=== PATIENT | male | born 1950 | race Caucasian/White ===

== ENCOUNTER 2019-08-27 22:15 | Inpatient (IN) | payer MEDICARE, OTHER ==
[~2019-08-27] VITALS: Ht 162.6 cm; Wt 59.0 kg
--- NOTE | 2019-08-27 23:05 | NUR ---
BIB SISTER FOR PSYCH ADMISSION. REFERED BY DR. LOPEZ FOR GPS ADMIT. PLACED ON MONITOR AND PULSE OX. VSS.
--- NOTE | 2019-08-27 23:15 | NUR ---
CALLED EFREN BEAUCHAMP FOR EVALAUTION. NO ANSWER, LEFT MESSAGE. WILL FOLLOW UP
[2019-08-27] MEDS ORDERED: RISP1TAB7 PO (23:32)
[2019-08-27] MEDS ORDERED: TRAZ-182 PO (23:32)
--- NOTE | 2019-08-27 23:35 | NUR ---
Waldo garrett in [facility] - 08/28/19 at 0024 by BRENT SUKH BEAUCHAMP LCSW FOR EVALUATION
--- NOTE | 2019-08-27 23:37 | NUR ---
CALLED EFREN BEAUCHAMP FOR EVALUATION
--- NOTE | 2019-08-27 23:37 | NUR ---
COVID SWAB SENT TO LAB
--- NOTE | 2019-08-27 23:50 | NUR ---
CALLED QUYNH SCHWARTZ FOR EVALUATION
--- NOTE | 2019-08-28 00:25 | NUR ---
CALLED EFREN BEAUCHAMP FOR EVALUATION
--- NOTE | 2019-08-28 00:31 | NUR ---
CALLED CADEN PIRES LCSW FOR EVALUATION
--- NOTE | 2019-08-28 02:36 | NUR ---
CALLED EFREN BEAUCHAMP FOR EVALUATION
--- NOTE | 2019-08-28 03:12 | NUR ---
PT RESTING. GIVEN FOOD.
--- NOTE | 2019-08-28 03:14 | NUR ---
CALLED CADEN PIRES LCSW FOR EVALUATION. NO ANSWER
--- NOTE | 2019-08-28 04:55 | NUR ---
QUYNH AT BEDSIDE
--- NOTE | 2019-08-28 05:12 | NUR ---
REPORT GIVEN FOR TEJAS
[2019-08-28] MEDS ORDERED: TEMAZEPAM 7.5 MG CAPSULE PO PRN (06:00)
[2019-08-28] MEDS ORDERED: ACETAMINOPHEN 325 MG TABLET PO PRN (06:00)
[2019-08-28] MEDS ORDERED: MAGNESIUM HYDROXIDE 30 ML UDC PO PRN (06:00)
[2019-08-28] MEDS ORDERED: MAG HYDROX/AL HYDROX/SIMETH 30 ML UDC PO PRN (06:00)
[2019-08-28] MEDS ORDERED: BLOOD SUGAR DIAGNOSTIC 1 EACH STRIP IN ONE (06:30)
[2019-08-28 06:31] VITALS: BP 116/84
--- NOTE | 2019-08-28 06:40 | NUR ---
GPS ELECTRIC MOTOR CONTROL ASSEMBLER NOTES: ADMITTED A 68 YO MALE FROM [facility]. PATIENT CAME FROM HOME PRIOR TO [place] ADMISSION. PATIENT IS ON 5150 HOLD FOR GRAVE DISABILITY. PER HOLD PATIENT PRESENTS AT THE ED CONFUSED, RAMBLING, NOT MAKING ANY SENSE, HAD SOME DELUSIONAL EPISODES AND SHOWED UNPREDICTABLE BEHAVIOR. DR. LOPEZ AND JOY ALVARES WILL BE ON THE PATIENT'S CARE WHILE ADMITTED INPATIENT HERE AT [facility]. PATIENT WAS BROUGHT IN HERE BY EMT STAFF AT 0530AM VIA WHEELCHAIR. UPON FACE TO FACE EVALUATION, PATIENT PRESENTS ALERT AND ORIENTED X2-3, ABLE TO MAKE HIS NEEDS KNOW,NOTED THAT PATIENT WAS NEAT AND WELL DRESSED. DURING INTERVIEW PATIENT TENDS TO STUTTER HE ANSWERS QUESTIONS AND REPEATEDLY TELLS THE NURSE THE SAME STUFF. "DR. LOPEZ WILL COME AND SEE ME TODAY" - THIS PHRASE REPEATEDLY STATED OVER AND OVER AND AGAIN DURING THE COURSE OF THE INTERVIEW. SKIN AND BODY ASSESSMENT DONE WITH ANOTHER RN, AKANKSHA AGUILERA. NO SKIN ISSUES NOTED THIS TIME. PHOTO PICTURE DONE AND PLACED IN CHART. PATIENT THEN CHANGED TO CLEAN PATIENT'S GOWN AND CLEAN SOCKS. PATIENT ABLE TO SIGN ADMISSION PAPERS WITH OUT ANY PROBLEMS. PATIENT DOES ADMIT TO HEARING VOICES FROM TIME TO TIME HOWEVER HE IS NOT ABLE TO ELABORATE WHAT THESE VOICES ARE SAYING. PATIENT APPEARS TO BE OBSERVING THE SURROUNDING AROUND HIM. REALITY ORIENTATION DONE. ORIENTATION TO UNIT, STAFF,CARE PLAN, DOCTORS AND TEAM DONE. PATIENT ADVISE OF HIS HOLD. CARE PLAN THEN FORMULATED SPECIFIC TO THE PATIENT'S NEEDS. PROVIDED PATIENT WITH PATIENT'S RIGHTS HANDBOOK AND GUIDE TO PRESCRIPTION MEDICATIONS PROVIDED WELL. Q15 MIN CHECKS INITIATED. SAFETY AND FALL PRECAUTIONS OBSERVED. PATIENT WILL BE ENDORSED TO NEXT SHIFT NURSE FOR CONTINUITY OF CARE.
[2019-08-28 08:00] VITALS: BP 117/78
[2019-08-28] MEDS ORDERED: TRAZODONE 50 MG TABLET PO PRN (13:00)
[2019-08-28 16:00] VITALS: BP 113/72
[2019-08-28] MEDS: risperiDONE 1 MG TABLET PO SCH (17:28)
[2019-08-29 05:35] VITALS: BP 110/65
[2019-08-29] MEDS: risperiDONE 1 MG TABLET PO SCH ×2 (07:38→17:34)
[2019-08-29 08:00] VITALS: BP 108/74
[2019-08-29 08:00] LABS: BASOPHILS % (AUTO) 0.4 % (0.0-2.0); EOSINOPHILS % (AUTO) 1.4 % (0.0-6.0); HEMATOCRIT 41 % (39-51); HEMOGLOBIN 13.5 g/dL (13.5-17.5); LYMPHOCYTES # (AUTO) 1.4 /CMM (0.8-4.8); LYMPHOCYTES % (AUTO) 19.9 % (20.0-44.0); MEAN CORPUSCULAR HGB CONC 33 g/dl (31.0-36.0); MEAN CORPUSCULAR VOLUME 96 fL (80-96); MONOCYTES # (AUTO) 0.5 /CMM (0.1-1.30); MONOCYTES % (AUTO) 7.6 % (2.0-12.0); NEUTROPHILS % (AUTO) 70.7 % (43.0-81.0); PLATELET COUNT (AUTO) 154 /CMM (150-450); RED BLOOD CELL COUNT(AUTO) 4.29 MIL/uL (4.5-6.0); WHITE BLOOD COUNT (AUTO) 7.1 K/uL (4.3-11.0)
[2019-08-29 08:01] LABS: CALCIUM, SERUM 8.9 mg/dL (8.5-10.1); CREATININE 1.1 mg/dL (0.6-1.3); POTASSIUM 3.6 mmol/L (3.5-5.1)
[2019-08-29 16:00] VITALS: BP 123/87
[2019-08-29 20:10] VITALS: BP 110/71
[2019-08-29 20:14] VITALS: BP 110/71
[2019-08-30 08:00] VITALS: BP 128/85
[2019-08-30] MEDS: risperiDONE 1 MG TABLET PO SCH ×2 (08:00→16:39)
--- NOTE | 2019-08-30 10:13 | NUR ---
Social Work Initial Discharge Plan: Patient currently resides at [address] [place] [address]; ([phone]) with sister Debbie ([phone]). Per pt's sister Debbie ([phone]) would want patient back home upon discharge. plastic worker will work with the pt and the MD regarding appropriate discharge planning. plastic worker will form a safe and proper discharge plan.
--- NOTE | 2019-08-30 10:38 | NUR ---
Social Work Family Contact: sheet metal production worker spoke with patient's sister Debbie ([phone]) and discussed patient's treatment plan and discharge plan.
--- NOTE | 2019-08-30 14:48 | NUR ---
INDIVIDUAL INTERVENTION: SW met with pt at bedside. Pt appeared confused, disorganized, and disoriented. Pt had mumbled speech and stated he was at an [facility] waiting to get surgery. Pt was unable to engage in an appropriate conversation.
[2019-08-30 16:00] VITALS: BP 114/80
[2019-08-30 19:56] VITALS: BP 144/84
[2019-08-30 20:00] VITALS: BP 144/84
[2019-08-30 20:41] VITALS: BP 138/79
--- NOTE | 2019-08-31 06:38 | NUR ---
GPS RN NOTE PATIENT SLEPT WELL AT NIGHT, NO CHANGE OF CONDITION NOTED. WILL ENDORSE TO AM RN FOR CONTINUITY OF CARE.
[2019-08-31 08:06] VITALS: BP 141/91
[2019-08-31] MEDS: risperiDONE 1 MG TABLET PO SCH ×2 (08:07→17:05)
--- NOTE | 2019-08-31 14:41 | NUR ---
GROUP NOTE: Pt was present during group therapy, pt discussed his addiction and stated how that has put a strain in his relationship between him and his family. Pt stated that he is going to try and stick to treatment this time around. Pt agrees to be discharged to [facility] tomorrow. Addendum: 09/01/19 at 1108 by SUKI BERRY WRONG NOTE: Addendum: 09/01/19 at 1111 by SUKI BERRY GROUP NOTE: Pt was present during group therapy, pt was coloring and did not engage in conversation.
[2019-08-31 15:58] VITALS: BP 140/91
[2019-08-31 20:11] VITALS: BP 132/94
[2019-09-01 08:00] VITALS: BP 135/80
[2019-09-01] MEDS: risperiDONE 1 MG TABLET PO SCH ×2 (08:22→16:26)
--- NOTE | 2019-09-01 14:05 | NUR ---
GROUP NOTE: Pt was present during group therapy but did not engage in conversation. Pt appears to be developmentally delayed and has mumbled/stuttered speech. Pt was coloring and did not engage. Pts mood is calm with congruent affect.
[2019-09-01 16:00] VITALS: BP 145/96
[2019-09-01 20:08] VITALS: BP 151/85
--- NOTE | 2019-09-02 00:51 | NUR ---
GPS RN NOTE: INSOMNIA PT COMPLAINED OF NOT BEING ABLE TO SLEEP AND REQUESTING SOMETHING FOR SLEEP. ADMINISTERED TRAZODONE PRN @0046, WILL REASSESS AND MONITOR Q15 MIN FOR SAFETY AND BEHAVIOR.
[2019-09-02 08:00] VITALS: BP 123/83
[2019-09-02] MEDS: risperiDONE 1 MG TABLET PO SCH ×3 (08:27→20:35)
[2019-09-02] MEDS ORDERED: TEMAZEPAM 7.5 MG CAPSULE PO PRN (12:30)
[2019-09-02] MEDS: BENZTROPINE MESYLATE (1 MG) 1 MG TABLET PO SCH ×2 (13:00→16:21)
--- NOTE | 2019-09-02 14:22 | NUR ---
GROUP NOTE: Group Topic was on how to manage stress. Patient was able to engage in group. Patient was present but was not interacting or sharing.
[2019-09-02 16:00] VITALS: BP 124/82
[2019-09-02 20:50] VITALS: BP 137/68
--- NOTE | 2019-09-03 00:31 | NUR ---
GPS RN NOTE: INSOMNIA PT WAS FOUNDED GETTING UP AND OUT OF BED FREQUENTLY. TRIED THERAPEUTIC TECHNIQUES TO HELP PROMOTE SLEEP. PT STATED "I WANT A SLEEPING PILL". WENT AHEAD AND ADMINISTERED RESTORIL 7.5MG TAB PRN @0031. WILL REASSESS AND MONITOR Q15MIN FOR SAFETY AND BEHAVIOR.
[2019-09-03] MEDS: LORAZEPAM 0.5 MG TABLET PO PRN (01:22)
--- NOTE | 2019-09-03 01:25 | NUR ---
GPS RN NOTE: ANXIETY PT WAS FOUND RESTLESS, ANXIOUS AND WALKING AROUND. PT REQUESTED SOMETHING TO HELP WITH ANXIETY. ADMINISTERED ATIVAN 0.5MG PRN @0122. WILL REASSESS AND CONTINUE TO MONITOR Q15 MIN FOR SAFETY AND BEHAVIOR.
[2019-09-03 08:00] VITALS: BP 134/75
[2019-09-03] MEDS: risperiDONE 1 MG TABLET PO SCH ×3 (08:07→20:53)
[2019-09-03] MEDS: BENZTROPINE MESYLATE (1 MG) 1 MG TABLET PO SCH ×2 (08:07→16:36)
--- NOTE | 2019-09-03 14:52 | NUR ---
GROUP NOTE: SW invited pt to join group. Pt refused to join and stated that he wanted to color.
[2019-09-03 16:00] VITALS: BP 131/85
[2019-09-03 19:53] VITALS: BP 118/55
[2019-09-03 20:00] VITALS: BP 118/55
[2019-09-03] MEDS: TEMAZEPAM 7.5 MG CAPSULE PO PRN (21:46)
[2019-09-04 08:00] VITALS: BP 112/66
[2019-09-04] MEDS: risperiDONE 1 MG TABLET PO SCH ×3 (08:31→20:08)
[2019-09-04] MEDS: BENZTROPINE MESYLATE (1 MG) 1 MG TABLET PO SCH ×2 (08:31→16:08)
[2019-09-04 16:00] VITALS: BP 122/74
[2019-09-04 20:24] VITALS: BP 125/80
[2019-09-04] MEDS: TEMAZEPAM 7.5 MG CAPSULE PO PRN (22:28)
[2019-09-05 08:00] VITALS: BP 124/87
[2019-09-05] MEDS: risperiDONE 1 MG TABLET PO SCH ×3 (09:01→20:36)
[2019-09-05] MEDS: BENZTROPINE MESYLATE (1 MG) 1 MG TABLET PO SCH ×2 (09:01→17:23)
[2019-09-05 16:00] VITALS: BP 131/87
[2019-09-05] MEDS: LORAZEPAM 0.5 MG TABLET PO PRN (17:23)
--- NOTE | 2019-09-05 17:23 | NUR ---
rn notes administered Ativan 0.5 mg po prn for anxiety per patient request, bp 131/87, p-95.
[2019-09-05 20:07] VITALS: BP 125/86
[2019-09-06 08:00] VITALS: BP 133/83
[2019-09-06] MEDS: BENZTROPINE MESYLATE (1 MG) 1 MG TABLET PO SCH ×2 (08:30→16:09)
[2019-09-06] MEDS: risperiDONE 1 MG TABLET PO SCH ×3 (08:30→20:22)
--- NOTE | 2019-09-06 12:00 | NUR ---
Social Work Family Contact: childcare worker spoke with patient's sister Debbie ([phone]) and discussed patients discharge plan. Per Debbie, she would want this comic book writer to coordinate to find a SNF for pt. This comic book writer will work with the MD regarding placement.
--- NOTE | 2019-09-06 12:01 | NUR ---
Social Work Coordination of Care: This selling underwriter faxed Laura from [place] ([phone]) and sent patient's H & P psychiatric notes and progress notes to review.
--- NOTE | 2019-09-06 13:45 | NUR ---
Social Work Coordination of Care: This jingle writer faxed Laura from [facility] ([phone]) who stated that they are unable to accept patient due to pt not having skilled needs.
--- NOTE | 2019-09-06 13:50 | NUR ---
Social Work Coordination of Care: This com writer faxed Monique from [facility] ([phone]) who stated that they will review patient's H & P psychiatric notes and progress notes. Addendum: 09/06/19 at 1412 by KRISTI VAZQUEZ They are not admitting patients at the moment due to COVID re-testing at the facility.
--- NOTE | 2019-09-06 15:40 | NUR ---
Social Work Coordination of Care: This business writer sent referrals to [facility] ([phone]) and will review patient's clinicals. Addendum: 09/06/19 at 1559 by KRISTI VAZQUEZ Patient is accepted
[2019-09-06 16:00] VITALS: BP 126/84
[2019-09-06 20:10] VITALS: BP 139/85
[2019-09-06] MEDS: LORAZEPAM 0.5 MG TABLET PO PRN (21:24)
--- NOTE | 2019-09-06 21:25 | NUR ---
GPS-RN NOTE: ANXIETY PATIENT NOTED TO BE ANXIOUS AND RESTLESS. ADMINISTERED ATIVAN 0.5MG PO ORDERED. WILL CONTINUE TO MONITOR FOR SAFETY AND BEHAVIOR.
--- NOTE | 2019-09-07 07:30 | NUR ---
RECEIVED PT. THIS AM ALERT AND ORIENTED X 3.NO COMPLAINTS OFFERED.TALKS TO SELF OFTEN
[2019-09-07 08:00] VITALS: BP 122/73
[2019-09-07] MEDS: BENZTROPINE MESYLATE (1 MG) 1 MG TABLET PO SCH ×2 (08:58→17:27)
[2019-09-07] MEDS: risperiDONE 1 MG TABLET PO SCH ×3 (08:58→20:02)
--- NOTE | 2019-09-07 15:02 | NUR ---
GROUP NOTE: Group Topic: Depression SW invited patient to group, however patient refused to attend group he stated "I am busy thinking about stuff right now"
[2019-09-07 16:00] VITALS: BP 137/86
[2019-09-07 19:55] VITALS: BP 117/74
[2019-09-07] MEDS ORDERED: MEMANTINE HCL 5 MG TABLET PO SCH (22:00)
[2019-09-08 08:00] VITALS: BP 116/74
[2019-09-08] MEDS: BENZTROPINE MESYLATE (1 MG) 1 MG TABLET PO SCH ×2 (09:10→16:50)
[2019-09-08] MEDS: risperiDONE 1 MG TABLET PO SCH ×3 (09:12→20:17)
--- NOTE | 2019-09-08 13:31 | NUR ---
given tylenol 650 mg po for back pain. Addendum: 09/08/19 at 1546 by DEMIAN SUBRAMANIAN RN ABOVE INFO ON WRONG PT.
--- NOTE | 2019-09-08 14:15 | NUR ---
RN WALKING IN TO RM.PT. ATTEMPTING TO GET OOB,WITH DIFFICLTY.PT. WITH USE OF WALKER AND WALKING UNSTEADILY AND CROOKED.SEEMS WEAK.PLACED IN JULI CHAIR. Addendum: 09/08/19 at 1547 by DEMIAN SUBRAMANIAN RN ABOVE INFO ON WRONG PT.
--- NOTE | 2019-09-08 15:07 | NUR ---
Group Note: SW encouraged the pt to attend group therapy on 09/08/19 on the topic of discharge planning. Pt stated that he is in the activities room and therefore he would participate. KRISTI attempted to have more individuals participate but was unable to get more patients. KRISTI came back and did an individual session with the pt but the pt appeared to be confused, was mumbling and his speech was incoherent and nonsensical. Pt is not appropriate for group at this time.
--- NOTE | 2019-09-08 15:48 | NUR ---
IN DINING RM.,COLORING.QUIET AND COOPERATIVE. M
[2019-09-08 16:00] VITALS: BP 144/85
[2019-09-08 19:34] VITALS: BP 138/74
[2019-09-09 08:00] VITALS: BP 144/88
[2019-09-09] MEDS: risperiDONE 1 MG TABLET PO SCH ×3 (08:49→20:04)
[2019-09-09] MEDS: BENZTROPINE MESYLATE (1 MG) 1 MG TABLET PO SCH ×2 (08:49→16:44)
[2019-09-09] MEDS: MEMANTINE HCL 5 MG TABLET PO SCH ×2 (08:52→16:44)
--- NOTE | 2019-09-09 14:12 | NUR ---
GROUP NOTE: Topic: Adapting to our environment. corrections caseworker encouraged patient to participate in group therapy, however patient was sleeping and did not want to be bothered at this time. SW encouraged patient to step out of his room and engage with others.
[2019-09-09 16:00] VITALS: BP 124/90
[2019-09-09 20:13] VITALS: BP 142/88
[2019-09-10 08:00] VITALS: BP 113/70
[2019-09-10] MEDS: risperiDONE 1 MG TABLET PO SCH ×3 (08:06→19:26)
[2019-09-10] MEDS: BENZTROPINE MESYLATE (1 MG) 1 MG TABLET PO SCH ×2 (08:06→16:25)
[2019-09-10] MEDS: MEMANTINE HCL 5 MG TABLET PO SCH ×2 (08:06→16:27)
--- NOTE | 2019-09-10 15:05 | NUR ---
GROUP NOTE: Topic: Learning coping skills. SW attempted to encourage patient to participate in group. Patient was resting at this time and wanted to remain sleeping.
[2019-09-10 16:00] VITALS: BP 145/91
[2019-09-10 21:10] VITALS: BP 125/78
--- NOTE | 2019-09-11 07:15 | NUR ---
GPS RN NOTE NO BEHAVIOR PROBLEMS NOTED. NO ACUTE DISTRESS NOTED. WILL CONTINUE TO MONITOR FOR SAFETY AND BEHAVIOR .
[2019-09-11 08:00] VITALS: BP 129/76
[2019-09-11] MEDS: MEMANTINE HCL 5 MG TABLET PO SCH ×2 (08:36→16:32)
[2019-09-11] MEDS: BENZTROPINE MESYLATE (1 MG) 1 MG TABLET PO SCH ×2 (08:36→16:32)
[2019-09-11] MEDS: risperiDONE 1 MG TABLET PO SCH ×3 (08:36→20:09)
[2019-09-11 16:00] VITALS: BP 126/87
[2019-09-11 20:55] VITALS: BP 139/80
[2019-09-12 08:00] VITALS: BP 117/69
[2019-09-12] MEDS: MEMANTINE HCL 5 MG TABLET PO SCH ×2 (08:07→17:34)
[2019-09-12] MEDS: BENZTROPINE MESYLATE (1 MG) 1 MG TABLET PO SCH ×2 (08:07→17:34)
[2019-09-12] MEDS: risperiDONE 1 MG TABLET PO SCH ×3 (08:07→20:17)
[2019-09-12 15:50] VITALS: BP 125/77
[2019-09-12 19:53] VITALS: BP 112/82
[2019-09-13 08:00] VITALS: BP 135/92
[2019-09-13] MEDS: risperiDONE 1 MG TABLET PO SCH ×2 (08:29→12:08)
[2019-09-13] MEDS: MEMANTINE HCL 5 MG TABLET PO SCH (08:29)
[2019-09-13] MEDS: BENZTROPINE MESYLATE (1 MG) 1 MG TABLET PO SCH (08:29)
--- NOTE | 2019-09-13 09:00 | NUR ---
RN NOTE- PT QUIET WITHDRAWN ISOLATIVE SLOW TO RESPOND VERBALLY DENIES ALL PO INTAKE GOOD MED COMPLIANT
--- NOTE | 2019-09-13 09:07 | NUR ---
KRISTI Discharge Note: Patient will be discharged to senior living facility, [address] [address] ([phone]) via ambulance transportation at 1pm. KRISTI spoke with Nick branch operations coordinator at the facility who states they are ready to accept the patient today. This software writer spoke with patients sister, Debbie ([phone]) who is aware and agreeable with discharge plan. Patient is alert and oriented x3-4, and is unable to plan for self-care, however, patient is willing to accept care provided at the facility. Patient denies suicidal or homicidal ideation. Patient is aware and agreeable with discharge plans. Patient will continue to follow-up with his Psychiatrist Dr. Kenney and Heel Washer Stringing Machine Operator Dr. Neville at [address] [address] ([phone]. Patient's sister, Debbie ([phone]) is made aware and agreeable with discharge plan.
[2019-09-13] MEDS: LORAZEPAM 0.5 MG TABLET PO PRN (14:09)
--- NOTE | 2019-09-13 14:09 | NUR ---
RN NOTE- IN ANXIOUS ABOUT DC . ATIVAN 0.5 MG GIVEN
--- NOTE | 2019-09-13 14:35 | NUR ---
RN NOTE- PT DC TO [facility] IN [place] AT THIS TIME . PT A BIT ANXIOUS ABOUT DC. VS STABLE PT ALERT ORIENTED TO SELF ONLY. CONFUSED. DENYING SI HI AH VH. DC INSTRUCTIONS AND AFTERCARE REPORT CALLED TO FACILITY AT NOON TODAY. DC INSTRUCTIONS REVIEWED W AMBULANCE STAFF AND UNDERSTOOD. VALUABLES RETURNED TO PT. ID [id number] REMOVED AND PT ESCORTED OFF UNIT BY STAFF
== END 2019-09-13 14:35 | DRG 885 ==
LOC: ER 22:25 → GPS 08-28 05:18
PROVIDERS: ADMIT Psychiatry & Neurology Psychiatry; ATTEND Nurse Practitioner Acute Care
DX: F25.0 Schizoaffective disorder, bipolar type (principal); F79 Unspecified intellectual disabilities; F03.91 Unspecified dementia, unspecified severity, with behavioral disturbance; F29 Unspecified psychosis not due to a substance or known physiological condition; F41.9 Anxiety disorder, unspecified; R62.50 Unspecified lack of expected normal physiological development in childhood; F42.9 Obsessive-compulsive disorder, unspecified; Z73.6 Limitation of activities due to disability; E11.9 Type 2 diabetes mellitus without complications
CPT/HCPCS: 36415; 80048-TC; 80061-TC; 80305; 82962-TC; 84443-TC; 85025-TC; 87081-TC

== ENCOUNTER 2019-11-12 17:29 | Inpatient (IN) | payer MEDICARE, OTHER ==
[~2019-11-12] VITALS: Ht 165.1 cm; Wt 66.7 kg
[~2019-11-12 17:29] MED LIST: RISP1TAB7 PO; TRAZ-182 PO
--- NOTE | 2019-11-12 18:41 | NUR ---
Waldo garrett in [place] - 11/12/19 at 1844 by NABIL Patient discharged to home in stable condition. Written and verbal after care instructions given. Patient verbalizes understanding of instruction.
--- NOTE | 2019-11-12 19:28 | NUR ---
PATIENT CAME TO ER BED 1 WITH SISTER C/O WEAKNESS SINCE THE . PATIENT'S SISTER STATES THAT HE WAS RECENTLY DISCHARGED FROM [facility] ON THE . PATIENT IS AAOX2. PATIENT'S SISTER STATES THAT HE HAS MENTAL DISORDER SINCE , BUT IS USUALLY AAOX4. PATIENT HAS UNSTEADY GAIT WALKING TO THE BED. PATIENT HAS TREMORS. BREATHING EVENLY AND UNLABORED ON ROOM AIR. PATIENT IS CONNECTED TO THE MONITOR. Addendum: 11/12/19 at 1955 by BÁRBARA UNKNOWN LAST BM. SISTER STATES HE WENT TO RESTROOM, BUT IS UNSURE IF HE HAD A GM. ABDOMEN IS DISTENDED.
--- NOTE | 2019-11-12 19:55 | NUR ---
BLOOD COLLECTED AND SENT TO LAB.
--- NOTE | 2019-11-12 20:06 | NUR ---
PATIENT TAKEN TO CT VIA [facility]
--- NOTE | 2019-11-12 20:16 | NUR ---
RETURNED FROM CT.
[2019-11-12 20:18] LABS: BASOPHILS % (AUTO) 0.2 % (0.0-2.0); EOSINOPHILS % (AUTO) 0.9 % (0.0-6.0); HEMATOCRIT 40 % (39-51); HEMOGLOBIN 13.3 g/dL (13.5-17.5); LYMPHOCYTES # (AUTO) 0.8 /CMM (0.8-4.8); LYMPHOCYTES % (AUTO) 12.4 % (20.0-44.0); MEAN CORPUSCULAR HGB CONC 33 g/dl (31.0-36.0); MEAN CORPUSCULAR VOLUME 95 fL (80-96); MONOCYTES # (AUTO) 0.4 /CMM (0.1-1.30); MONOCYTES % (AUTO) 6.5 % (2.0-12.0); PLATELET COUNT (AUTO) 141 /CMM (150-450); RED BLOOD CELL COUNT(AUTO) 4.21 MIL/uL (4.5-6.0); WHITE BLOOD COUNT (AUTO) 6.2 K/uL (4.3-11.0)
[2019-11-12 20:27] LABS: CALCIUM, SERUM 8.7 mg/dL (8.5-10.1); CARBON DIOXIDE 24 mmol/L (21-32); CHLORIDE 104 mmol/L (98-107); CREATININE 0.9 mg/dL (0.6-1.3); GLUCOSE 106 mg/dL (74-106); POTASSIUM 3.7 mmol/L (3.5-5.1); SODIUM SERUM 139 mmol/L (136-145); UREA NITROGEN, BLOOD 10 mg/dL (7-18)
[2019-11-12 20:32] LABS: ALANINE AMINOTRANSFERASE 52 U/L (12-78); ALBUMIN 3.5 g/dL (3.4-5.0); ALKALINE PHOSPHATASE 59 U/L (46-116); ASPARTATE AMINOTRANSFERASE 41 U/L (15-37); BILIRUBIN,DIRECT 0.1 mg/dL (0.0-0.2); BILIRUBIN,TOTAL 0.4 mg/dL (0.2-1.0); LIPASE 71 U/L (73-393); TOTAL PROTEIN, SERUM 7.2 g/dL (6.4-8.2)
--- NOTE | 2019-11-12 20:48 | NUR ---
URINE COLLECTED AND SENT TO THE LAB.
[2019-11-12] MEDS ORDERED: ONDANSETRON HCL/PF - ER 4 MG/2 ML VIAL IV ONE (21:00)
[2019-11-12] MEDS ORDERED: IV NS 0.9% 1,000 ML BAG IV ONE (21:00)
[2019-11-12 21:21] LABS: APPEARANCE,URINE Clear (CLEAR); BILIRUBIN,URINE Negative (NEGATIVE); BLOOD, URINE Trace-intact Ery/uL (NEGATIVE); COLOR,URINE Yellow (YELLOW); KETONES,URINE 40 (NEGATIVE); LEUKOCYTE ESTERASE ,URINE Negative (NEGATIVE); NITRITE, URINE Negative (NEGATIVE); PROTEIN,URINE Negative (NEGATIVE); UGLUCOSE Negative (NEGATIVE); UROBILINOGEN,URINE 0.2 EU/dL (0.2)
--- NOTE | 2019-11-12 21:21 | NUR ---
COVID SWAB COLLLECTED AND SENT TO THE LAB.
[2019-11-12] MEDS ORDERED: ONDANSETRON HCL/PF 4 MG/2 ML VIAL ONE (21:35)
[2019-11-12 21:52] LABS: BACTERIA,URINE 1+ /HPF (None Seen); MUCUS,URINE Few /LPF (None Seen); RBC,URINE 0-2 /HPF (0-2); SQUAMOUS EPITHELIAL CELL,UR Few /HPF (None Seen); URINE AMORPHOUS URATE Few /HPF (None Seen); WBC,URINE 0-2 /HPF (0-3)
[2019-11-12] MEDS ORDERED: MAGNESIUM HYDROXIDE 30 ML UDC PO PRN (22:00)
[2019-11-12] MEDS ORDERED: ACETAMINOPHEN 325 MG TABLET PO PRN (22:00)
[2019-11-12] MEDS ORDERED: ACETAMINOPHEN 650 MG/SUPP.RECT RC PRN (22:00)
[2019-11-12] MEDS ORDERED: Z GUARD REMEDY 2 OZ OINT TP PRN (22:00)
[2019-11-12] MEDS ORDERED: ONDANSETRON HCL/PF 4 MG/2 ML VIAL IVP PRN (22:00)
[2019-11-12] MEDS ORDERED: MAG HYDROX/AL HYDROX/SIMETH 30 ML UDC PO PRN (22:00)
[2019-11-12] MEDS ORDERED: ZOLPIDEM TARTRATE 5 MG TABLET PO PRN (22:00)
--- NOTE | 2019-11-12 22:18 | NUR ---
LAB CALLED REGARDING NEGATIVE COVID RESULT.
--- NOTE | 2019-11-12 22:25 | NUR ---
ms [id number]
--- NOTE | 2019-11-12 23:12 | NUR ---
REPORT GIVEN TO CY HURLEY FOR TEJAS.
[2019-11-12 23:30] VITALS: BP 132/97
[2019-11-12] MEDS ORDERED: NA PHOS,M-B/NA PHOS,DI-BA 1 EA ENEMA RC PRN (23:30)
--- NOTE | 2019-11-12 23:30 | NUR ---
RN MS ADMISSION OPENING NOTES RECEIVED PATIENT FROM ER VIA [facility] SAFELY TRANSFERRED TO BED, AWAKE, ALERT AND ORIENTED X2, ABLE TO MAKE NEEDS KNOWN,RESPIRATIONS EVEN AND UNLABORED WITH EQUAL RISE AND FALL OF CHEST, NPO DX, RIGHT AC #20G INTACT AND PATENT, NO REDNESS, NO INFILTRATION PRESENT, NOTED WITH ABD DISTENTION. HARD TO TOUCH, DENIES NAUSEA AT THIS TIME, ALL NEEDS ATTENDED SAFETY PRECAUTIONS RENDERED, LOW BED AND LOCKED, BED ALARM IN PLACE, ALL NEEDS ATTENDED AT THIS TIME, WILL CONTINUE TO MONITOR AND CARRY OUT MD ORDERS.
--- NOTE | 2019-11-12 23:32 | NUR ---
PATIENT TAKEN TO ASSIGNED ROOM FOR TEJAS.
[2019-11-13] VITALS: BP 132/97
[2019-11-13] MEDS: IV NS 0.9% 1,000 ML IV PRN ×2 (00:02→11:37)
[2019-11-13] MEDS: METOCLOPRAMIDE HCL 10 MG/2 ML VIAL IV SCH ×4 (01:53→20:43)
--- NOTE | 2019-11-13 06:35 | NUR ---
RN MS CLOSING NOTES PATIENT IN BED, AWAKE, ALERT AND ORIENTED X2, ABLE TO MAKE NEEDS KNOWN,RESPIRATIONS EVEN AND UNLABORED WITH EQUAL RISE AND FALL OF CHEST, NPO DX, RIGHT AC #20G INTACT AND PATENT, NO REDNESS, NO INFILTRATION PRESENT, IVF RUNNING ORDERED, NOTED WITH ABD DISTENTION. HARD TO TOUCH, DENIES NAUSEA AT THIS TIME, ENEMA GIVEN FOR CONSTIPATION, WILL CONTINUE TO MONITOR,ALL NEEDS ATTENDED SAFETY PRECAUTIONS RENDERED, LOW BED AND LOCKED, BED ALARM IN PLACE, ALL NEEDS ATTENDED AT THIS TIME, WILL CONTINUE TO MONITOR AND ENDORSE TO NEXT SHIFT, NO EPISODE OF VOMITING OR NAUSEA.
[2019-11-13 06:38] LABS: BASOPHILS % (AUTO) 0.2 % (0.0-2.0); EOSINOPHILS % (AUTO) 0.3 % (0.0-6.0); HEMATOCRIT 38 % (39-51); HEMOGLOBIN 12.5 g/dL (13.5-17.5); LYMPHOCYTES # (AUTO) 0.7 /CMM (0.8-4.8); MEAN CORPUSCULAR HGB CONC 33 g/dl (31.0-36.0); MEAN CORPUSCULAR VOLUME 94 fL (80-96); MONOCYTES # (AUTO) 0.5 /CMM (0.1-1.30); MONOCYTES % (AUTO) 6.8 % (2.0-12.0); NEUTROPHILS # (AUTO) 6.4 /CMM (1.8-8.9); NEUTROPHILS % (AUTO) 83.7 % (43.0-81.0); PLATELET COUNT (AUTO) 141 /CMM (150-450); RED BLOOD CELL COUNT(AUTO) 3.99 MIL/uL (4.5-6.0); WHITE BLOOD COUNT (AUTO) 7.7 K/uL (4.3-11.0)
[2019-11-13 07:09] LABS: ALBUMIN 3.3 g/dL (3.4-5.0); BILIRUBIN,TOTAL 0.4 mg/dL (0.2-1.0); CALCIUM, SERUM 8.3 mg/dL (8.5-10.1); CREATININE 0.7 mg/dL (0.6-1.3); MAGNESIUM 2.1 mg/dL (1.8-2.4); PHOSPHORUS 2.9 mg/dL (2.5-4.9); POTASSIUM 3.4 mmol/L (3.5-5.1); TOTAL PROTEIN, SERUM 6.6 g/dL (6.4-8.2)
[2019-11-13 08:00] VITALS: BP 136/92
--- NOTE | 2019-11-13 08:00 | NUR ---
MS RN NOTES PATIENT IN BED RESTING NO SOB OR ACUTE DISTRESS NOTED. PATIENT ALERT, ORIENTED X2. PERIPHERAL IV INTACT PATIENT. SAFETY MEASURES IN PLACE WILL CONTINUE TO MONITOR.
[2019-11-13] MEDS: PANTOPRAZOLE 40 MG VIAL IV SCH (08:43)
[2019-11-13] MEDS: risperiDONE 1 MG TABLET PO SCH ×2 (08:43→20:43)
[2019-11-13] MEDS: DOCUSATE SODIUM 100 MG CAPSULE PO SCH ×2 (08:43→17:37)
[2019-11-13] MEDS ORDERED: POTASSIUM CHLORIDE 20 MEQ TAB.PRT.SR PO ONE (10:00)
[2019-11-13] MEDS: ENOXAPARIN SODIUM 40 MG/0.4 ML DISP.SYRIN SQ SCH (10:35)
[2019-11-13 16:00] VITALS: BP 125/82
--- NOTE | 2019-11-13 19:17 | NUR ---
MS RN NOTES PATIENT IN BED RESTING NO SOB OR ACUTE DISTRESS NOTED. ALL DUE MEDICATIONS ADMINISTERED. ALL NEEDS MET. NO ACUTE CHANGES NOTED. WILL ENDORSE CARE TO PM SHIFT.
--- NOTE | 2019-11-13 19:30 | NUR ---
ms rn opening note received patient in bed. a/ox1. tolerating room air. respirations even and unlabored. no s/s sob noted. no c/o pain at this time. in no apparent distress. iv access in RAC #20 running NS@100ml/hr. bed is low and locked, hob elevated in semi fowlers, side rails up x2. call light within reach. informed patient urine sample needed. will continue to monitor.
[2019-11-13 20:00] VITALS: BP 108/72
[2019-11-13] MEDS: TRAZODONE 50 MG TABLET PO SCH (22:00)
--- NOTE | 2019-11-13 22:40 | NUR ---
ms rn note patient refused desyrel 25mg. informed of risk and benefits, patient continues to refuse. will continue to monitor.
[2019-11-14] MEDS: IV NS 0.9% 1,000 ML IV PRN (04:02)
[2019-11-14] MEDS: METOCLOPRAMIDE HCL 10 MG/2 ML VIAL IV SCH ×3 (05:44→21:05)
--- NOTE | 2019-11-14 06:27 | NUR ---
ms rn closing note patient in bed. a/ox2. tolerating room air. no resp distress. no c/o throughout shift. no distress noted. iv access in LAC #20 running NS@100ml/hr. bed remains low and locked, hob elevated in semi fowlers, side rails up x2. call light within reach. could not obtain urine sample, patient was incontinent and did not use urinal during shift. will endorse to next shift.
[2019-11-14 07:02] LABS: BASOPHILS % (AUTO) 0.2 % (0.0-2.0); HEMATOCRIT 35 % (39-51); HEMOGLOBIN 11.7 g/dL (13.5-17.5); LYMPHOCYTES # (AUTO) 0.8 /CMM (0.8-4.8); MEAN CORPUSCULAR HGB CONC 33 g/dl (31.0-36.0); MEAN CORPUSCULAR VOLUME 94 fL (80-96); MONOCYTES # (AUTO) 0.7 /CMM (0.1-1.30); MONOCYTES % (AUTO) 7.2 % (2.0-12.0); NEUTROPHILS # (AUTO) 7.5 /CMM (1.8-8.9); NEUTROPHILS % (AUTO) 82.6 % (43.0-81.0); PLATELET COUNT (AUTO) 131 /CMM (150-450); RED BLOOD CELL COUNT(AUTO) 3.74 MIL/uL (4.5-6.0); WHITE BLOOD COUNT (AUTO) 9.1 K/uL (4.3-11.0)
[2019-11-14 07:27] LABS: CALCIUM, SERUM 8.6 mg/dL (8.5-10.1); CREATININE 0.7 mg/dL (0.6-1.3); MAGNESIUM 2.1 mg/dL (1.8-2.4); PHOSPHORUS 2.8 mg/dL (2.5-4.9)
[2019-11-14 08:00] VITALS: BP 107/73
--- NOTE | 2019-11-14 08:00 | NUR ---
MS RN NOTES PATIENT IN BED RESTING NO SOB OR ACUTE DISTRESS NOTED. SAFETY MEASURES IN PLACE WILL CONTINUE OT MONITOR.
[2019-11-14] MEDS: risperiDONE 1 MG TABLET PO SCH ×2 (08:44→21:05)
[2019-11-14] MEDS: PANTOPRAZOLE 40 MG VIAL IV SCH (08:44)
[2019-11-14] MEDS: ENOXAPARIN SODIUM 40 MG/0.4 ML DISP.SYRIN SQ SCH (08:45)
[2019-11-14] MEDS: DOCUSATE SODIUM 100 MG CAPSULE PO SCH ×2 (08:45→17:40)
[2019-11-14 16:00] VITALS: BP 114/66
--- NOTE | 2019-11-14 18:20 | NUR ---
MS RN NOTES PATIENT IN BED RESTING NO SOB OR ACUTE DISTRESS NOTED. NO ACUTE CHANGES NOTED DURING SHIFT. ALL DUE MEDICATIONS ADMINISTERED. ALL NEEDS MET. WILL ENDORSE CARE TO PM SHIFT.
--- NOTE | 2019-11-14 19:45 | NUR ---
MS RN OPENING NOTES RECEIVED PATIENT IN BED, ALERT AND ORIENTED X 2 BUT VERBALLY RESPONSIVE AND ABLE TO SIMPLE FOLLOW DIRECTIONS. BREATHING REGULAR AND UNLABORED ON ROOM AIR. RIGHT AC G20 IV LINE INTACT AND FLUSHING WELL WITH NO BLEEDING OR S/S OF INFILTRATION NOTED. DENIES SUICIDAL IDEATION OR PAIN/DISCOMFORT AT THIS TIME. BED LOW AND LOCKED ON SEMI FOWLERS POSITION. CALL LIGHT IN REACH. WILL CONTINUE TO MONITOR.
[2019-11-14 20:00] VITALS: BP_SYST 112; BP_DIAS 64; BP_DIAS 69
[2019-11-14] MEDS: TRAZODONE 50 MG TABLET PO SCH (21:12)
[2019-11-15] MEDS: METOCLOPRAMIDE HCL 10 MG/2 ML VIAL IV SCH ×2 (04:45→12:21)
[2019-11-15] MEDS: IV NS 0.9% 1,000 ML IV PRN (06:10)
--- NOTE | 2019-11-15 06:45 | NUR ---
MS RN CLOSING NOTES PATIENT IN BED, ALERT AND ORIENTED X 2. AFEBRILE WITH NO S/S DISTRESS OBSERVED. LEFT AC G20 IV LINE INTACT AND INFUSING WELL. NO COMPLAINTS OF PAIN/DISCOMFORT REPORTED THE WHOLE SHIFT. BED LOW AND LOCKED ON SEMI FOWLERS POSITION. CALL LIGHT IN REACH. WILL ENDORSE TO MORNING SHIFT FOR TEJAS.
--- NOTE | 2019-11-15 07:39 | NUR ---
MS RN OPENING NOTES RECEIVED PATIENT IN BED, AWAKE, A/O X2. PATIENT ON ROOM AIR. BREATHING IS EVEN AND UNLABORED AT THIS TIME; NO SOB PRESENT. NO COMPLAINS OF PAIN. LAC IV ACCESS G # [address] AND INTACT RUNNING NS @ 100 MLS/HR. SAFETY PRECAUTIONS IN PLACE; BED IN LOW POSITION AND LOCKED, RAILS UP X2, CALL LIGHT WITHIN REACH. WILL CONTINUE TO MONITOR PATIENT.
[2019-11-15 08:00] VITALS: BP 113/70
[2019-11-15 08:19] LABS: BASOPHILS % (AUTO) 0.3 % (0.0-2.0); EOSINOPHILS % (AUTO) 3.1 % (0.0-6.0); HEMATOCRIT 36 % (39-51); HEMOGLOBIN 11.9 g/dL (13.5-17.5); LYMPHOCYTES # (AUTO) 1.1 /CMM (0.8-4.8); LYMPHOCYTES % (AUTO) 22.5 % (20.0-44.0); MEAN CORPUSCULAR HGB CONC 33 g/dl (31.0-36.0); MEAN CORPUSCULAR VOLUME 94 fL (80-96); MONOCYTES # (AUTO) 0.4 /CMM (0.1-1.30); MONOCYTES % (AUTO) 8.4 % (2.0-12.0); NEUTROPHILS # (AUTO) 3.1 /CMM (1.8-8.9); NEUTROPHILS % (AUTO) 65.7 % (43.0-81.0); PLATELET COUNT (AUTO) 134 /CMM (150-450); WHITE BLOOD COUNT (AUTO) 4.7 K/uL (4.3-11.0)
[2019-11-15] MEDS: PANTOPRAZOLE 40 MG VIAL IV SCH (08:29)
[2019-11-15] MEDS: risperiDONE 1 MG TABLET PO SCH (08:29)
[2019-11-15] MEDS: DOCUSATE SODIUM 100 MG CAPSULE PO SCH (08:29)
[2019-11-15] MEDS: ENOXAPARIN SODIUM 40 MG/0.4 ML DISP.SYRIN SQ SCH (08:30)
[2019-11-15 08:53] LABS: CALCIUM, SERUM 8.5 mg/dL (8.5-10.1); CREATININE 0.7 mg/dL (0.6-1.3); PHOSPHORUS 3.6 mg/dL (2.5-4.9); POTASSIUM 3.7 mmol/L (3.5-5.1)
--- NOTE | 2019-11-15 10:07 | NUR ---
WOUND CARE CONSULT: PT PRESENTS WITH AREA OF SKIN DISCOLORATION TO LEFT HEEL WITHOUT DRAINAGE, ERYTHEMA OR TENDERNESS, PRESENT ON ADMISSION. PT HAS CURRENT JOI SCORE OF 19. WILL SEE PRN. Addendum: 11/15/19 at 1008 by AHMET LAWS WNDNU Amended: Links added.
[2019-11-15] MEDS ORDERED: DOCU-141 PO (12:53)
--- NOTE | 2019-11-15 16:27 | NUR ---
MS SENIOR NETWORK SECURITY ENGINEER NOTES PATIENT DISCHARGED TO SNF IN MEDICALLY STABLE CONDITION. PATIENT ON ROOM AIR BREATHING EVEN AND UNLABORED. A/O X1/2. ALL DISCHARGE DOCUMENTS READY AND SIGNED BY PATIENT. VALUABLES PRESENT AND FORM SIGNED WELL. PHOTOS TAKEN AND FILED. CALLED [facility] WITH REPORT GIVEN TO XAVI ASHLEY. BEFORE LEAVING THE FLOOR IV WAS REMOVED. PATIENT LEFT THE FLOOR VIA GURNEY AT 1525 ACCOMPANIED BY 2 pediatric physician assistant.
[2019-11-16] MEDS ORDERED: PANTOPRAZOLE 40 MG TABLET.DR PO SCH (07:30)
== END 2019-11-15 15:55 | DRG 388 ==
LOC: ER 17:40 → MED 22:38
PROVIDERS: ADMIT Nurse Practitioner Acute Care; ATTEND Nurse Practitioner Acute Care
DX: K56.41 Fecal impaction (principal); G93.41 Metabolic encephalopathy; F84.0 Autistic disorder; K31.84 Gastroparesis; R62.50 Unspecified lack of expected normal physiological development in childhood; K44.9 Diaphragmatic hernia without obstruction or gangrene; F79 Unspecified intellectual disabilities; Z79.899 Other long term (current) drug therapy; E87.6 Hypokalemia; F25.0 Schizoaffective disorder, bipolar type; F01.50 Vascular dementia, unspecified severity, without behavioral disturbance, psychotic disturbance, mood disturbance, and anxiety; F41.9 Anxiety disorder, unspecified; R79.89 Other specified abnormal findings of blood chemistry; E86.0 Dehydration
CPT/HCPCS: 36415; 80048-TC; 80053-TC; 80076-TC; 81000-TC; 83605-TC; 83690-TC; 83735-TC; 84100-TC; 84484-TC; 85025-TC; 85730-TC; 87040-TC; 87081-TC; 97116-TC; 97530-TC; C9113; C9803-CS; G0378; J1650; J2405; J2765; J7030

== ENCOUNTER 2024-03-13 16:01 | Inpatient (IN) | payer MEDICARE, OTHER ==
[~2024-03-13] VITALS: Ht 172.7 cm; Wt 70.8 kg
[~2024-03-13 16:01] MED LIST changes: +DOCU-141 PO
[2024-03-13] MEDS ORDERED: ONDANSETRON HCL/PF 4 MG/2 ML VIAL ONE (16:31)
[2024-03-13] MEDS: IV NS 0.9% 1,000 ML BAG IV ONE ×2 (16:35→18:00)
[2024-03-13] MEDS: ONDANSETRON HCL/PF 4 MG/2 ML VIAL IVP ONE ×2 (16:44→17:07)
[2024-03-13] MEDS ORDERED: MORPHINE SULFATE INJ 4 MG/ML DISP.SYRIN ONE (16:51)
[2024-03-13 16:52] LABS: BASOPHILS % (AUTO) 0.2 % (0.0-2.0); EOSINOPHILS % (AUTO) 0.3 % (0.0-6.0); HEMATOCRIT 40 % (39-51); HEMOGLOBIN 13.2 g/dL (13.5-17.5); LYMPHOCYTES # (AUTO) 1.1 K/uL (0.8-4.8); LYMPHOCYTES % (AUTO) 7.2 % (20.0-44.0); MEAN CORPUSCULAR HEMOGLOBIN 26 PG (26.0-33.0); MEAN CORPUSCULAR HGB CONC 33 g/dl (31.0-36.0); MEAN CORPUSCULAR VOLUME 80 fL (80-96); MONOCYTES # (AUTO) 0.8 K/uL (0.1-1.30); MONOCYTES % (AUTO) 5.1 % (2.0-12.0); NEUTROPHILS # (AUTO) 13.1 K/uL (1.8-8.9); NEUTROPHILS % (AUTO) 87.2 % (43.0-81.0); PLATELET COUNT (AUTO) 217 K/uL (150-450); RED BLOOD CELL COUNT(AUTO) 5.02 MIL/uL (4.5-6.0); RED CELL DISTRIBUTION WIDTH 19.2 % (11.5-15.0)
[2024-03-13] MEDS: MORPHINE SULFATE INJ 2 MG/ML DISP.SYRIN IV ONE (17:00)
[2024-03-13 17:08] LABS: ALANINE AMINOTRANSFERASE 23 U/L (12-78); ALBUMIN 3.2 g/dL (3.4-5.0); ALKALINE PHOSPHATASE 111 U/L (46-116); ASPARTATE AMINOTRANSFERASE 16 U/L (15-37); BILIRUBIN,DIRECT 0.1 mg/dL (0.0-0.2); BILIRUBIN,TOTAL 0.3 mg/dL (0.2-1.0); CALCIUM, SERUM 9.4 mg/dL (8.5-10.1); CARBON DIOXIDE 23 mmol/L (21-32); CHLORIDE 104 mmol/L (98-107); GLUCOSE 156 mg/dL (74-106); LIPASE 30 U/L (16-77); POTASSIUM 3.4 mmol/L (3.5-5.1); SODIUM SERUM 138 mmol/L (136-145); TOTAL PROTEIN, SERUM 7.6 g/dL (6.4-8.2); UREA NITROGEN, BLOOD 12 mg/dL (7-18)
[2024-03-13 17:15] LABS: LACTIC ACID 2.8 mmol/L (0.4-2.0)
[2024-03-13] MEDS ORDERED: HYDROMORPHONE 1 MG/1 ML DISP.SYRIN ONE (17:43)
[2024-03-13 17:54] LABS: APPEARANCE,URINE SLIGHTLY CLOUDY (CLEAR); BILIRUBIN,URINE NEGATIVE (NEGATIVE); BLOOD, URINE TRACE-INTA Ery/uL (NEGATIVE); COLOR,URINE YELLOW (YELLOW); KETONES,URINE NEGATIVE (NEGATIVE); LEUKOCYTE ESTERASE ,URINE 3+ (NEGATIVE); NITRITE, URINE POSITIVE (NEGATIVE); PH,URINE 5.5 (5.0-8.0); PROTEIN,URINE NEGATIVE (NEGATIVE); UGLUCOSE NEGATIVE (NEGATIVE); UROBILINOGEN,URINE 0.2 EU/dL (0.2)
[2024-03-13] MEDS ORDERED: DOCU100C36 PO (18:13)
[2024-03-13] MEDS ORDERED: RISP0.5T65 PO (18:13)
[2024-03-13] MEDS ORDERED: NA P133E RC (18:13)
[2024-03-13] MEDS ORDERED: MULT-213 PO (18:13)
[2024-03-13] MEDS ORDERED: BISA10SU11 RC (18:13)
[2024-03-13] MEDS ORDERED: OMEG-167 PO (18:13)
[2024-03-13] MEDS ORDERED: ACET325T53 PO (18:13)
[2024-03-13] MEDS ORDERED: ACET-73 PO (18:13)
[2024-03-13] MEDS ORDERED: ONDA-97 PO (18:13)
[2024-03-13] MEDS: PIPERACILLIN /TAZOBACTAM 3.375 G in IV D5W 50 ML IV ONE (18:15)
[2024-03-13] MEDS: HYDROMORPHONE 1 MG/1 ML DISP.SYRIN IV ONE (18:15)
[2024-03-13 18:47] LABS: ADD URINE CULTURE YES; BACTERIA,URINE 3+ /HPF (None Seen); SQUAMOUS EPITHELIAL CELL,UR 0-2 /HPF (None Seen); WBC,URINE 51-80 /HPF (0-3)
[2024-03-13] MEDS ORDERED: ACETAMINOPHEN 325 MG TABLET PO PRN (19:00)
[2024-03-13] MEDS ORDERED: MAGNESIUM HYDROXIDE 30 ML UDC PO PRN (19:00)
[2024-03-13] MEDS ORDERED: NA PHOS,M-B/NA PHOS,DI-BA 1 EA ENEMA RC PRN (19:00)
[2024-03-13] MEDS ORDERED: BISACODYL SUPP (10 MG) 10 MG/SUPP.RECT SUPP.RECT RC PRN (19:00)
[2024-03-13] MEDS ORDERED: Z GUARD REMEDY 4 OZ OINT TP PRN (19:00)
[2024-03-13] MEDS ORDERED: Medication Not On Formulary EA (Ondansetron Hcl 4 MG) PO PRN (19:00)
[2024-03-13] MEDS ORDERED: MAG HYDROX/AL HYDROX/SIMETH 30 ML UDC PO PRN (19:00)
[2024-03-13] MEDS ORDERED: ONDANSETRON HCL/PF 4 MG/2 ML VIAL IVP PRN (19:00)
[2024-03-13] MEDS ORDERED: ONDANSETRON 4 MG TAB.RAPDIS PO PRN (19:30)
[2024-03-13] MEDS: ZOLPIDEM TARTRATE 5 MG TABLET PO PRN (20:20)
[2024-03-13] MEDS: ZOLPIDEM TARTRATE 5 MG TABLET ONE (20:35)
[2024-03-13 21:30] VITALS: BP 121/80; TEMP 98.2; O2SAT 91
[2024-03-13] MEDS: IV NS 0.9% 1,000 ML IV PRN (23:49)
[2024-03-13] MEDS: POTASSIUM CHLORIDE 20 MEQ TAB.PRT.SR PO ONE (23:50)
[2024-03-13] MEDS: ENOXAPARIN SODIUM 40 MG/0.4 ML DISP.SYRIN SQ SCH (23:58)
[2024-03-14] VITALS: BP 127/85; TEMP 98.2; O2SAT 95
[2024-03-14] MEDS: ACETAMINOPHEN ES 500 MG TABLET PO PRN (01:16)
[2024-03-14] MEDS ORDERED: PIPERACI/TAZO 3.375GM/D5W 50ML PB IV ONE (03:32)
[2024-03-14] MEDS: PIPERACILLIN /TAZOBACTAM 3.375 G in IV D5W 50 ML IV ONE (03:33)
[2024-03-14 07:36] LABS: BASOPHILS % (AUTO) 0.1 % (0.0-2.0); EOSINOPHILS % (AUTO) 0.2 % (0.0-6.0); HEMATOCRIT 39 % (39-51); HEMOGLOBIN 12.7 g/dL (13.5-17.5); LYMPHOCYTES # (AUTO) 1.6 K/uL (0.8-4.8); LYMPHOCYTES % (AUTO) 13.7 % (20.0-44.0); MEAN CORPUSCULAR HEMOGLOBIN 26 PG (26.0-33.0); MEAN CORPUSCULAR HGB CONC 33 g/dl (31.0-36.0); MEAN CORPUSCULAR VOLUME 80 fL (80-96); MONOCYTES # (AUTO) 0.9 K/uL (0.1-1.30); MONOCYTES % (AUTO) 8.3 % (2.0-12.0); NEUTROPHILS # (AUTO) 8.8 K/uL (1.8-8.9); NEUTROPHILS % (AUTO) 77.7 % (43.0-81.0); PLATELET COUNT (AUTO) 223 K/uL (150-450); RED BLOOD CELL COUNT(AUTO) 4.86 MIL/uL (4.5-6.0); RED CELL DISTRIBUTION WIDTH 18.8 % (11.5-15.0); WHITE BLOOD COUNT (AUTO) 11.3 K/uL (4.3-11.0)
[2024-03-14 07:54] LABS: CALCIUM, SERUM 8.9 mg/dL (8.5-10.1); CREATININE 1.1 mg/dL (0.6-1.3); MAGNESIUM 2.3 mg/dL (1.8-2.4); PHOSPHORUS 3.2 mg/dL (2.5-4.9); POTASSIUM 4.5 mmol/L (3.5-5.1)
[2024-03-14 08:00] VITALS: BP 124/88; TEMP 98; O2SAT 96
[2024-03-14] MEDS: risperiDONE 0.25 MG TABLET PO SCH (08:06)
[2024-03-14] MEDS: PANTOPRAZOLE 40 MG TABLET.DR PO SCH (08:06)
[2024-03-14] MEDS: MULTIVIT W/MINERALS 1 TAB TABLET PO SCH (08:06)
[2024-03-14] MEDS: DOCUSATE SODIUM 100 MG CAPSULE PO SCH (08:06)
[2024-03-14] MEDS: PIPERACILLIN /TAZOBACTAM 3.375 G in IV D5W 100 ML IV SCH (08:08)
[2024-03-14 08:39] LABS: THYROID STIMULATING HORMONE 2.43 uIU/mL (0.358-3.74)
[2024-03-14 08:55] LABS: LACTIC ACID 2.2 mmol/L (0.4-2.0)
[2024-03-14] MEDS ORDERED: Medication Not On Formulary EA (Multivitamins W-Minerals (Multivitamins With Minerals) 1 PO SCH (09:00)
[2024-03-14] MEDS ORDERED: Medication Not On Formulary EA (Risperidone 0.5 MG) PO SCH (09:00)
[2024-03-14] MEDS ORDERED: Medication Not On Formulary EA (Omega-3 Fatty Acids/Fish Oil (Fish Oil 1,000 Mg Softgel) PO SCH (09:00)
[2024-03-14] MEDS ORDERED: DOCUSATE SODIUM 100 MG CAPSULE PO SCH (09:00)
[2024-03-14 16:00] VITALS: BP 128/86; TEMP 99.1; O2SAT 93
[2024-03-14 20:00] VITALS: BP 125/85; TEMP 97.5; O2SAT 95
[2024-03-14] MEDS: POLYETHYLENE GLYCOL 3350 17 GM POWD.PACK PO SCH (22:20)
[2024-03-15 08:00] VITALS: BP 104/67; TEMP 98.2; O2SAT 95
[2024-03-15 10:09] LABS: CALCIUM, SERUM 8.4 mg/dL (8.5-10.1); CREATININE 1.2 mg/dL (0.6-1.3); MAGNESIUM 2.1 mg/dL (1.8-2.4); PHOSPHORUS 2.1 mg/dL (2.5-4.9); POTASSIUM 3.6 mmol/L (3.5-5.1)
[2024-03-15 10:31] LABS: BASOPHILS % (AUTO) 0.2 % (0.0-2.0); EOSINOPHILS # (AUTO) 0.1 K/uL (0.0-0.7); EOSINOPHILS % (AUTO) 1.2 % (0.0-6.0); HEMATOCRIT 37 % (39-51); HEMOGLOBIN 12.1 g/dL (13.5-17.5); LYMPHOCYTES % (AUTO) 14.1 % (20.0-44.0); MEAN CORPUSCULAR HEMOGLOBIN 26 PG (26.0-33.0); MEAN CORPUSCULAR HGB CONC 33 g/dl (31.0-36.0); MEAN CORPUSCULAR VOLUME 80 fL (80-96); MONOCYTES # (AUTO) 0.4 K/uL (0.1-1.30); MONOCYTES % (AUTO) 5.2 % (2.0-12.0); NEUTROPHILS # (AUTO) 5.8 K/uL (1.8-8.9); NEUTROPHILS % (AUTO) 79.3 % (43.0-81.0); PLATELET COUNT (AUTO) 182 K/uL (150-450); RED BLOOD CELL COUNT(AUTO) 4.63 MIL/uL (4.5-6.0); RED CELL DISTRIBUTION WIDTH 19.2 % (11.5-15.0); WHITE BLOOD COUNT (AUTO) 7.3 K/uL (4.3-11.0)
[2024-03-15 16:01] VITALS: BP 126/81; TEMP 97.5; O2SAT 94
[2024-03-15] MEDS: K PHOS NEUTRAL 250 MG TABLET PO ONE (18:09)
[2024-03-15 20:52] VITALS: BP 122/81; TEMP 98.6; O2SAT 97
[2024-03-16 01:09] VITALS: BP 122/81; TEMP 98.6; O2SAT 97
[2024-03-16] MEDS: ACETAMINOPHEN 325 MG TABLET PO PRN (15:27)
[2024-03-16 16:23] LABS: BASOPHILS % (AUTO) 0.3 % (0.0-2.0); EOSINOPHILS # (AUTO) 0.3 K/uL (0.0-0.7); EOSINOPHILS % (AUTO) 4.4 % (0.0-6.0); HEMATOCRIT 36 % (39-51); HEMOGLOBIN 11.9 g/dL (13.5-17.5); LYMPHOCYTES # (AUTO) 1.5 K/uL (0.8-4.8); LYMPHOCYTES % (AUTO) 20.9 % (20.0-44.0); MEAN CORPUSCULAR HEMOGLOBIN 26 PG (26.0-33.0); MEAN CORPUSCULAR HGB CONC 33 g/dl (31.0-36.0); MEAN CORPUSCULAR VOLUME 79 fL (80-96); MONOCYTES # (AUTO) 0.5 K/uL (0.1-1.30); NEUTROPHILS # (AUTO) 4.8 K/uL (1.8-8.9); NEUTROPHILS % (AUTO) 67.4 % (43.0-81.0); PLATELET COUNT (AUTO) 175 K/uL (150-450); RED BLOOD CELL COUNT(AUTO) 4.56 MIL/uL (4.5-6.0); RED CELL DISTRIBUTION WIDTH 19.3 % (11.5-15.0); WHITE BLOOD COUNT (AUTO) 7.1 K/uL (4.3-11.0)
[2024-03-16 16:48] LABS: CALCIUM, SERUM 8.2 mg/dL (8.5-10.1); CREATININE 0.9 mg/dL (0.6-1.3); POTASSIUM 3.3 mmol/L (3.5-5.1)
[2024-03-16 20:00] VITALS: BP 108/69; TEMP 98.1; O2SAT 100
[2024-03-17 07:45] LABS: BASOPHILS % (AUTO) 0.3 % (0.0-2.0); EOSINOPHILS # (AUTO) 0.4 K/uL (0.0-0.7); HEMATOCRIT 32 % (39-51); HEMOGLOBIN 10.7 g/dL (13.5-17.5); LYMPHOCYTES # (AUTO) 1.4 K/uL (0.8-4.8); LYMPHOCYTES % (AUTO) 20.8 % (20.0-44.0); MEAN CORPUSCULAR HEMOGLOBIN 27 PG (26.0-33.0); MEAN CORPUSCULAR HGB CONC 34 g/dl (31.0-36.0); MEAN CORPUSCULAR VOLUME 80 fL (80-96); MONOCYTES # (AUTO) 0.5 K/uL (0.1-1.30); MONOCYTES % (AUTO) 6.7 % (2.0-12.0); NEUTROPHILS # (AUTO) 4.6 K/uL (1.8-8.9); NEUTROPHILS % (AUTO) 66.2 % (43.0-81.0); PLATELET COUNT (AUTO) 177 K/uL (150-450); RED BLOOD CELL COUNT(AUTO) 3.98 MIL/uL (4.5-6.0); RED CELL DISTRIBUTION WIDTH 19.3 % (11.5-15.0); WHITE BLOOD COUNT (AUTO) 6.9 K/uL (4.3-11.0)
[2024-03-17 08:00] VITALS: BP 126/78; TEMP 97.9; O2SAT 96
[2024-03-17 08:19] LABS: CALCIUM, SERUM 8.1 mg/dL (8.5-10.1); CREATININE 0.9 mg/dL (0.6-1.3); MAGNESIUM 2.1 mg/dL (1.8-2.4); PHOSPHORUS 3.5 mg/dL (2.5-4.9); POTASSIUM 3.4 mmol/L (3.5-5.1)
[2024-03-17] MEDS ORDERED: AMOX500T2 PO (10:24)
[2024-03-17] MEDS: POTASSIUM CHLORIDE 20 MEQ TAB.PRT.SR PO ONE (13:32)
== END 2024-03-17 13:15 | DRG 871 ==
LOC: ER 16:13 → MED 20:46 → TELE 21:33 → MED 03-14 10:17
PROVIDERS: ADMIT Student in an Organized Health Care Education/Training Program; ATTEND Nurse Practitioner Acute Care
DX: A41.9 Sepsis, unspecified organism (principal); G93.41 Metabolic encephalopathy; E44.1 Mild protein-calorie malnutrition; N39.0 Urinary tract infection, site not specified; F84.0 Autistic disorder; N12 Tubulo-interstitial nephritis, not specified as acute or chronic; K31.84 Gastroparesis; K44.9 Diaphragmatic hernia without obstruction or gangrene; F79 Unspecified intellectual disabilities; B96.89 Other specified bacterial agents as the cause of diseases classified elsewhere; K52.89 Other specified noninfective gastroenteritis and colitis; D64.9 Anemia, unspecified; E87.6 Hypokalemia; F20.9 Schizophrenia, unspecified; F29 Unspecified psychosis not due to a substance or known physiological condition; Z66 Do not resuscitate; K56.41 Fecal impaction; K57.30 Diverticulosis of large intestine without perforation or abscess without bleeding; Z78.1 Physical restraint status
CPT/HCPCS: 36415; 71045-TC; 74018; 80048-TC; 80076-TC; 81001; 83605-TC; 83690-TC; 83735-TC; 84100-TC; 84443-TC; 85025-TC; 87040-TC; 87081-TC; 87086-TC; A4223; G0378; J1171; J1650; J2270; J2405; J2543; J7030; J7040; J7060

== ENCOUNTER 2024-05-09 17:36 | Inpatient (IN) | payer MEDICARE, OTHER ==
[~2024-05-09] VITALS: Ht 172.7 cm; Wt 70.8 kg
[~2024-05-09 17:36] MED LIST changes: +ACET-73 PO; +ACET325T53 PO; +AMOX500T2 PO; +BISA10SU11 RC; -DOCU-141 PO; +DOCU100C36 PO; +MULT-213 PO; +NA P133E RC; +OMEG-167 PO; +ONDA-97 PO; +RISP0.5T65 PO; -RISP1TAB7 PO; -TRAZ-182 PO
[2024-05-09] MEDS ORDERED: KETOROLAC TROMETHAMINE 15 MG/ML VIAL ONE (17:53)
[2024-05-09] MEDS: KETOROLAC TROMETHAMINE 15 MG/ML VIAL IV ONE (18:10)
[2024-05-09] MEDS ORDERED: PANTOPRAZOLE 40 MG VIAL ONE (18:15)
[2024-05-09] MEDS ORDERED: FAMOTIDINE/PF INJ 20 MG/2 ML VIAL IV ONE (18:15)
[2024-05-09 18:16] LABS: BASOPHILS # (AUTO) 0.1 K/uL (0.0-0.2); BASOPHILS % (AUTO) 0.6 % (0.0-2.0); EOSINOPHILS # (AUTO) 0.1 K/uL (0.0-0.7); EOSINOPHILS % (AUTO) 1.4 % (0.0-6.0); HEMATOCRIT 37 % (39-51); HEMOGLOBIN 12.3 g/dL (13.5-17.5); LYMPHOCYTES # (AUTO) 1.8 K/uL (0.8-4.8); LYMPHOCYTES % (AUTO) 19.9 % (20.0-44.0); MEAN CORPUSCULAR HEMOGLOBIN 27 PG (26.0-33.0); MEAN CORPUSCULAR HGB CONC 33 g/dl (31.0-36.0); MEAN CORPUSCULAR VOLUME 82 fL (80-96); MONOCYTES # (AUTO) 0.6 K/uL (0.1-1.30); MONOCYTES % (AUTO) 6.5 % (2.0-12.0); NEUTROPHILS # (AUTO) 6.4 K/uL (1.8-8.9); NEUTROPHILS % (AUTO) 71.6 % (43.0-81.0); PLATELET COUNT (AUTO) 244 K/uL (150-450); RED BLOOD CELL COUNT(AUTO) 4.54 MIL/uL (4.5-6.0); RED CELL DISTRIBUTION WIDTH 19.7 % (11.5-15.0)
[2024-05-09] MEDS ORDERED: IOHEXOL-300 100 ML VIAL IV ONE (18:17)
[2024-05-09] MEDS ORDERED: CT SWABBABLE VALVE TRANS SET 1 EA INFUS.SET MC ONE (18:17)
[2024-05-09] MEDS ORDERED: IV NS 0.9% 250 ML IV ONE (18:18)
[2024-05-09] MEDS: PANTOPRAZOLE 40 MG VIAL IV ONE (18:19)
[2024-05-09] MEDS: FAMOTIDINE/PF INJ 20 MG/2 ML VIAL IV ONE (18:21)
[2024-05-09] MEDS ORDERED: METOCLOPRAMIDE HCL 10 MG/2 ML VIAL ONE (18:23)
[2024-05-09 18:28] LABS: ALANINE AMINOTRANSFERASE 19 U/L (12-78); ALBUMIN 3.3 g/dL (3.4-5.0); ALKALINE PHOSPHATASE 106 U/L (46-116); ASPARTATE AMINOTRANSFERASE 13 U/L (15-37); BILIRUBIN,DIRECT 0.1 mg/dL (0.0-0.2); BILIRUBIN,TOTAL 0.2 mg/dL (0.2-1.0); CALCIUM, SERUM 9.3 mg/dL (8.5-10.1); CARBON DIOXIDE 25 mmol/L (21-32); CHLORIDE 106 mmol/L (98-107); CREATININE 1.1 mg/dL (0.6-1.3); GLUCOSE 180 mg/dL (74-106); LIPASE 29 U/L (16-77); SODIUM SERUM 140 mmol/L (136-145); TOTAL PROTEIN, SERUM 7.5 g/dL (6.4-8.2); UREA NITROGEN, BLOOD 14 mg/dL (7-18)
[2024-05-09] MEDS: IV NS 0.9% 1,000 ML BAG IV ONE (18:30)
[2024-05-09] MEDS: METOCLOPRAMIDE HCL 10 MG/2 ML VIAL IV ONE (18:30)
[2024-05-09 19:23] LABS: APPEARANCE,URINE SLIGHTLY CLOUDY (CLEAR); BILIRUBIN,URINE NEGATIVE (NEGATIVE); BLOOD, URINE TRACE-INTA Ery/uL (NEGATIVE); COLOR,URINE YELLOW (YELLOW); KETONES,URINE NEGATIVE (NEGATIVE); LEUKOCYTE ESTERASE ,URINE 3+ (NEGATIVE); NITRITE, URINE POSITIVE (NEGATIVE); PROTEIN,URINE NEGATIVE (NEGATIVE); UGLUCOSE NEGATIVE (NEGATIVE); UROBILINOGEN,URINE 0.2 EU/dL (0.2)
[2024-05-09 20:09] LABS: ADD URINE CULTURE YES; BACTERIA,URINE 3+ /HPF (None Seen); SQUAMOUS EPITHELIAL CELL,UR 0-2 /HPF (None Seen); WBC,URINE 51-80 /HPF (0-3)
[2024-05-09] MEDS ORDERED: CEFTRIAXONE 1GM BAG (ER ONLY) 50 ML IV ONE (20:44)
[2024-05-09] MEDS: CEFTRIAXONE 1GM BAG (ER ONLY) 1 GM/50 ML PIGGYBACK IV ONE (20:45)
[2024-05-09] MEDS ORDERED: ONDANSETRON HCL/PF 4 MG/2 ML VIAL IVP PRN (21:00)
[2024-05-09] MEDS ORDERED: MORPHINE SULFATE INJ 2 MG/ML DISP.SYRIN IV PRN (21:00)
[2024-05-09] MEDS ORDERED: ACETAMINOPHEN 325 MG TABLET PO PRN (21:00)
[2024-05-09] MEDS ORDERED: hydrALAZINE HCL IV 20 MG VIAL IV PRN (21:00)
[2024-05-09 21:15] VITALS: BP 141/100; TEMP 97.9; O2SAT 98
[2024-05-09 21:40] VITALS: BP 141/100; TEMP 97.9; O2SAT 98
[2024-05-09] MEDS ORDERED: OLANZAPINE 10 MG VIAL IM PRN (22:00)
[2024-05-09] MEDS: IV NS 0.9% 1,000 ML IV SCH (23:02)
[2024-05-09] MEDS: POLYETHYLENE GLYCOL 3350 17 GM POWD.PACK PO SCH (23:03)
[2024-05-09] MEDS: risperiDONE 0.25 MG TABLET PO SCH (23:04)
[2024-05-09] MEDS: LACTULOSE 10 G/15 ML UDC (PYXIS) PO SCH (23:09)
[2024-05-09] MEDS ORDERED: CEFEPIME 1 GM VIAL ONE (23:21)
[2024-05-09] MEDS: HEPARIN SODIUM, PORCINE 5000 UNITS/1 ML VIAL SQ SCH (23:38)
[2024-05-10] MEDS: CEFEPIME 2 GM in IV NS 0.9% 100 ML IV SCH (00:36)
[2024-05-10 06:38] LABS: ALBUMIN 2.8 g/dL (3.4-5.0); BILIRUBIN,TOTAL 0.3 mg/dL (0.2-1.0); CALCIUM, SERUM 8.3 mg/dL (8.5-10.1); CREATININE 0.9 mg/dL (0.6-1.3); MAGNESIUM 2.2 mg/dL (1.8-2.4); PHOSPHORUS 3.6 mg/dL (2.5-4.9); TOTAL PROTEIN, SERUM 6.5 g/dL (6.4-8.2)
[2024-05-10 07:02] LABS: BASOPHILS % (AUTO) 0.3 % (0.0-2.0); EOSINOPHILS # (AUTO) 0.1 K/uL (0.0-0.7); EOSINOPHILS % (AUTO) 1.9 % (0.0-6.0); HEMATOCRIT 35 % (39-51); HEMOGLOBIN 11.4 g/dL (13.5-17.5); LYMPHOCYTES # (AUTO) 1.8 K/uL (0.8-4.8); LYMPHOCYTES % (AUTO) 25.1 % (20.0-44.0); MEAN CORPUSCULAR HEMOGLOBIN 27 PG (26.0-33.0); MEAN CORPUSCULAR HGB CONC 33 g/dl (31.0-36.0); MEAN CORPUSCULAR VOLUME 82 fL (80-96); MONOCYTES # (AUTO) 0.5 K/uL (0.1-1.30); MONOCYTES % (AUTO) 7.7 % (2.0-12.0); NEUTROPHILS # (AUTO) 4.6 K/uL (1.8-8.9); PLATELET COUNT (AUTO) 223 K/uL (150-450); RED BLOOD CELL COUNT(AUTO) 4.22 MIL/uL (4.5-6.0); RED CELL DISTRIBUTION WIDTH 19.5 % (11.5-15.0); WHITE BLOOD COUNT (AUTO) 7.1 K/uL (4.3-11.0)
[2024-05-10 08:00] VITALS: BP 112/73; TEMP 97.5; O2SAT 99
[2024-05-10] MEDS ORDERED: MAGN400O6 PO (08:10)
[2024-05-10] MEDS ORDERED: Medication Not On Formulary EA (Risperidone 0.5 MG) PO SCH (09:00)
[2024-05-10] MEDS: CEFEPIME 2 GM in IV D5W 100 ML IV SCH (09:40)
[2024-05-10] MEDS: DOCUSATE SODIUM LIQ 100 MG/10 ML UDC PO SCH (09:45)
[2024-05-10] MEDS ORDERED: BISACODYL SUPP (10 MG) 10 MG/SUPP.RECT SUPP.RECT RC PRN (11:30)
[2024-05-10] MEDS ORDERED: SULF1TAB48 PO (13:07)
[2024-05-10] MEDS ORDERED: LACT10SO58 PO (13:07)
[2024-05-10] MEDS ORDERED: SORB30SO2 PO (13:07)
[2024-05-10 16:00] VITALS: BP 130/87; TEMP 98.6; O2SAT 97
== END 2024-05-10 17:31 | DRG 391 ==
LOC: ER 17:38 → MED 21:07
PROVIDERS: ADMIT Internal Medicine; ATTEND Nurse Practitioner Acute Care
DX: K52.89 Other specified noninfective gastroenteritis and colitis (principal); G93.41 Metabolic encephalopathy; N39.0 Urinary tract infection, site not specified; F84.0 Autistic disorder; Z66 Do not resuscitate; Z51.5 Encounter for palliative care; F32.A Depression, unspecified; F79 Unspecified intellectual disabilities; K44.9 Diaphragmatic hernia without obstruction or gangrene; Z79.899 Other long term (current) drug therapy; B96.89 Other specified bacterial agents as the cause of diseases classified elsewhere; I10 Essential (primary) hypertension; Z86.59 Personal history of other mental and behavioral disorders; K56.41 Fecal impaction; F20.9 Schizophrenia, unspecified
CPT/HCPCS: 36415; 80048-TC; 80053-TC; 80076-TC; 81001; 83690-TC; 83735-TC; 84100-TC; 84484-TC; 85025-TC; 87040-TC; 87081-TC; 87086-TC; A4223; G0378; J0692; J0696; J1644; J1885; J2470; J2765; J3490; J7030; J7050; J7060; Q9967